=== PATIENT | female | born 1970 | race Caucasian/White ===

== ENCOUNTER → 2023-07-19 | Outpatient (CLI) | payer BC, MEDICARE ==
--- NOTE | 2023-07-19 11:33 | US ---
EXAMINATION TYPE: US abdomen complete DATE OF EXAM: 07/19/2023 COMPARISON: NONE CLINICAL INDICATION: Female, 53 years old with history of R10.11 RUQ PAIN R10.13 EPI PAIN; RUQ pain TECHNIQUE: Multiple sonographic images of the abdomen are obtained. FINDINGS: EXAM MEASUREMENTS: Liver Length: 15.9 cm Gallbladder Wall: .6 cm. 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 Gallbladder wall paddy some minimal fluid adjacent. Evidence for sonographic Hurd's sign: No CBD: wnl Spleen: wnl Right Kidney: wnl Left Kidney: wnl Upper IVC: wnl Abd Aorta: wnl IMPRESSION: 1. Cholelithiasis. Gallbladder wall thickening is 0.6 cm present, correlate for acute cholecystitis. 2. Mild fatty infiltration of the liver.
== END | disposition home or self-care (01) ==
LOC: RADUSWWP 11:02
PROVIDERS: ATTEND Family Medicine
DX: K80.20 Calculus of gallbladder without cholecystitis without obstruction (principal); K76.0 Fatty (change of) liver, not elsewhere classified
CPT/HCPCS: 76700

== ENCOUNTER → 2024-06-24 | Outpatient (CLI) | payer BC ==
--- NOTE | 2024-06-24 09:46 | MR ---
EXAMINATION TYPE: MR lumbar spine wo con DATE OF EXAM: 06/24/2024 COMPARISON: NONE HISTORY: Low back pain into chitra lower extremities TECHNIQUE: Multiplanar, multisequence imaging of the lumbar spine is performed without IV contrast. FINDINGS: Sagittal images of the lumbar spine show vertebral body heights and alignment to appear sat isfactory. There is disc desiccation at L1-L2, L2-L3, and L4-L5 levels. There is mild disc space joseph rowing at L1-L2 level The conus medullaris is normal in position and signal ending superior L1 level. Heterogeneous Modic type II endplate changes anterior at L1-L2 and L3-L4 levels. Axial images show T12-L1 level to appear within normal limits. Axial images at L1-L2 level show mild broad disc bulge minimally effacing anterior thecal sac. Axial images at L2-L3 and L3-L4 levels appear within normal limits. Axial images at L4-L5 level show mild to moderate facet arthropathy bilaterally. Axial images at L5-S1 level mild facet arthropathy bilaterally. There is no significant disc herniati on. Spinal canal is preserved. Paraspinal muscle bulk is maintained. 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 [facility], , 06/24/2024 9:43 AM
== END | disposition home or self-care (01) ==
LOC: RADMRIMAIN 08:35
PROVIDERS: ATTEND Family Medicine
DX: M51.16 Intervertebral disc disorders with radiculopathy, lumbar region (principal); M47.26 Other spondylosis with radiculopathy, lumbar region
CPT/HCPCS: 72148